=== PATIENT | male | born 1955 | race Two or more races ===

== ENCOUNTER 2021-09-06 09:45 | Day surgery (SDC) | payer BC ==
[2021-09-04 15:02] VITALS: BMI 22.4
[2021-09-06] MEDS ORDERED: Lidocaine 1% MPF 2 ML VIAL ONE (10:07)
[2021-09-06] MEDS ORDERED: PROPOFOL 20 ML ONE ×2 (10:35)
[2021-09-06] MEDS ORDERED: Lidocaine 1% PF 5 ML VIAL ONE (10:35)
[2021-09-06] MEDS ORDERED: PHENYLEPHRINE-NS 100 MCG/ML 10 ML SYRINGE ONE (11:05)
[2021-09-06 11:58] LABS: #Basophils 0.1 10x3/uL (0.0-0.2); #Eosinphils 0.1 10x3/uL (0.0-0.5); #Monocytes 0.8 10x3/uL (0.0-1.1); #Neutrophils 6.6 10x3/uL (1.5-8.4); %Basophils 0.9 % (0.0-2.0); %Eosinophils 1.5 % (0.0-6.0); %Lymphocytes 10.6 % (18.0-47.0); %Monocytes 8.7 % (0.0-10.0); %Neutrophils 76.5 % (40.0-75.0); Hemoglobin 7.5 g/dL (13.5-17.5); Mean Corpuscular HGB CONC 31.6 g/dL (32.0-36.0); Mean Corpuscular Hemoglobin 22.9 pg (27.0-33.0); Mean Corpuscular Volume 72.5 fl (81.2-95.1); Mean Platelet Volume 8.8 fl (7.4-10.4); Platelet Count 436 10x3/uL (150-450); RBC Distribution Width 16.8 % (11.5-14.5); Red Blood Cell (RBC) Count 3.27 10x6/uL (4.32-5.72); White Blood Cell (WBC) Count 8.7 10x3/uL (3.5-10.5)
[2021-09-06 12:12] LABS: Anion Gap 17 mmol/L (10-20); BUN (Urea Nitrogen) 18 mg/dL (8.4-25.7); Calc. Creatinine Clearance 77 mL/min (70-130); Calcium 9.1 mg/dL (7.8-10.44); Carbon Dioxide 22 mmol/L (23-31); Chloride 101 mmol/L (98-107); Glucose 84 mg/dL (80-115); Sodium 135 mmol/L (136-145)
[2021-09-06 13:00] LABS: Hep B Surf Ag Non-Reactive S/CO (NonReactive)
[2021-09-06 13:03] LABS: HBSAg Index 0.17 S/CO (0-0.99)
[2021-09-06 21:51] LABS: HBSAB Concentration Less than 8.00 mIU/mL; Hep B Surf AB Non-Reactive (NonReactive)
== END 2021-09-06 11:53 | disposition home or self-care (01) ==
LOC: CSHSDC 09:45
PROVIDERS: ATTEND Internal Medicine Gastroenterology
PROC: 0DBH8ZZ Excision of Cecum, Via Natural or Artificial Opening Endoscopic (ICD-10-PCS; principal; 2021-09-06)
DX: Z12.11 Encounter for screening for malignant neoplasm of colon (principal); K51.90 Ulcerative colitis, unspecified, without complications; K52.9 Noninfective gastroenteritis and colitis, unspecified; K63.5 Polyp of colon; K31.7 Polyp of stomach and duodenum; I10 Essential (primary) hypertension; E78.5 Hyperlipidemia, unspecified; E11.9 Type 2 diabetes mellitus without complications
CPT/HCPCS: 80048; 85025; 86706; 87340; 88305; J2704